=== PATIENT | male | born 1975 | race African-American/Black ===

== ENCOUNTER 2019-06-17 08:58 | Emergency (ER) | payer OTHER ==
[~2019-06-17] VITALS: Ht 180.3 cm; Wt 102.0 kg
[2019-06-17] MEDS ORDERED: IBUPROFEN 600MG TABLET PO ONE (10:00)
[2019-06-17] MEDS ORDERED: CLONIDINE 0.2MG TABLET PO ONE (12:30)
[2019-06-17 12:45] VITALS: BP 114/73
== END 2019-06-17 12:43 | disposition home or self-care (01) ==
LOC: ER 08:58
DX: M79.605 Pain in left leg (principal)
CPT/HCPCS: 73590; 93971; 99284